=== PATIENT | female | born 1945 | race Caucasian/White ===

== ENCOUNTER 2020-05-09 15:04 | Emergency (ER) | payer MEDICARE, OTHER ==
[~2020-05-09] VITALS: Ht 165.1 cm; Wt 89.1 kg
--- NOTE | 2020-05-09 15:30 | NUR ---
ua sent. pt up to restroom self
[2020-05-09 16:25] LABS: MICROSCOPIC INDICATED
[2020-05-09 17:19] LABS: BASOPHILS % (AUTO) 1 % (0-1); EOSINOPHILS % (AUTO) 2 % (1-7); LYMPHOCYTES % (AUTO) 20 % (22-44); MEAN CORPUSCULAR HGB CONC 33.8 g/dL (32.4-35.8); MEAN PLATELET VOLUME 7.6 fL (7.4-10.4); MONOCYTES % (AUTO) 9 % (2-9); NEUTROPHILS % (AUTO) 70 % (42-75); PLATELET COUNT 169 x10^3/uL (130-400); RED BLOOD COUNT 4.09 x10^6/uL (3.82-5.3)
[2020-05-09 17:20] LABS: MD NO
[2020-05-09 17:30] VITALS: BP 200/80
[2020-05-09 17:30] LABS: ALBUMIN 3.6 g/dL (3.4-5.0); ANION GAP 9 mmol/L (5-15); CALCIUM 9.2 mg/dL (8.5-10.1); CHLORIDE 108 mmol/L (98-107); CREATININE 1.26 mg/dL (0.55-1.02)
[2020-05-09] MEDS ORDERED: CEFTRIAXONE 1,000 MG IM ONE (17:30)
--- NOTE | 2020-05-09 17:31 | NUR ---
pt in bed notified md of bp
--- NOTE | 2020-05-09 18:20 | NUR ---
PROVIDER AWARE OF BP NO NEW ORDERS RECIEVED.
[2020-05-09] MEDS ORDERED: CEFTRIAXONE 1,000 MG ONE (18:24)
--- NOTE | 2020-05-09 18:42 | NUR ---
pt walked out self with howie. admin antibiotics. pt took her own bp meds at the bedside and told this rn that she has a radial bp cuff at home. we discuess if her s&s worsen return to the er
== END 2020-05-09 18:49 | disposition home or self-care (01) ==
LOC: ED 18:43
DX: N30.01 Acute cystitis with hematuria (principal); I10 Essential (primary) hypertension; E11.9 Type 2 diabetes mellitus without complications
CPT/HCPCS: 36415; 80048; 81001; 82040; 85025; 87077; 87086; 96372; 99285; J0696; 87186